=== PATIENT | female | born 1985 ===

== ENCOUNTER 2017-11-14 00:38 | Emergency (ER) | payer SELFPAY ==
[2017-11-14 01:53] VITALS: BP 107/62
== END 2017-11-14 05:01 | disposition left against medical advice (07) ==
LOC: ED 00:38
DX: R05 Cough (principal); R09.81 Nasal congestion; J02.9 Acute pharyngitis, unspecified; Z53.21 Procedure and treatment not carried out due to patient leaving prior to being seen by health care provider